=== PATIENT | female | born 2000 | race Caucasian/White ===

== ENCOUNTER 2023-03-27 10:24 | Emergency (ER) | payer BC, SELFPAY ==
--- NOTE | ~2023-03-27 | XR_ITS ---
EXAMINATION:XR_[id number], XR thoracic spine 3V DATE: 03/27/2023 11:20 INDICATION: Neck and back pain TECHNIQUE: 1. Standing AP, lateral, lateral swimmers and odontoid views of the cervical spine are provided. 2. Standing AP, lateral and lateral swimmer's views of the thoracic spine were obtained. COMPARISON: None FINDINGS: Cervical spine: Straightening of the normal cervical lordosis. Which could be positional or due to muscle spasm No sp ondylolisthesis or facet subluxation. Odontoid is intact. Normal atlantoaxial interval. Vertebral b faustino heights are normal. Disc spaces are normal. Prevertebral soft tissues are normal. Thoracic spine: 9 degree thoracic levocurvature. Sagittal alignment is normal. Vertebral body and disc heights are no rmal. Visualized portion of lungs are clear. Cardiomediastinal silhouette is normal. IMPRESSION: 1. Straightening of the normal cervical lordosis which could be positional or due to muscle spasm. 2. 9 degree thoracic levocurvature. Reviewed, dictated and finalized at location L. IMPRESSION: 1. Straightening of the normal cervical lordosis which could be positional or d ue to muscle spasm. 2. 9 degree thoracic levocurvature.
[2023-03-27 10:25] VITALS: BP 106/63; PULSE 66; RESP 17; TEMP 36.4; O2SAT 99
--- NOTE | 2023-03-27 10:39 | ED_ITS ---
HPI - Back Pain/Injury General Chief Complaint: Back Pain/Injury Stated Complaint: upper back pain Time Seen by Provider: 03/27/23 10:30 History of Present Illness HPI Narrative: 22-year-old female presents to the emergency room for mid back pain for 10 days. Patient denies any injury or trauma. States 10 years ago she fractured her T6 vertebra, is concerned that she might of reinjured it. Patient has not attempted any [id number] analgesics. States pain is worse when she takes in a deep breath or with certain movements. Denies any unilateral weakness or pain. Denies any numbness or tingling. Related Data Allergies Allergy/AdvReac Type Severity Reaction Status Date / Time No Known Allergies Allergy Verified 03/27/23 10:28 Review of Systems Review of Systems: CONSTITUTIONAL: Denies fever, chills, or sweats. EYES: Denies visual changes, redness, or discharge. ENT: Denies rhinorrhea, congestion, sore throat, or otalgia. CARDIOVASCULAR: Denies chest pain, palpitations, or edema. RESPIRATORY: Denies cough or dyspnea. GASTROINTESTINAL: Denies abdominal pain, nausea, vomiting, or diarrhea. GENITOURINARY: Denies dysuria or hematuria. SKIN: Denies rash or itching. MUSCULOSKELETAL: Reports mid back pain NEUROLOGIC: Denies headache, numbness, dizziness, or weakness. PSYCHIATRIC: Denies anxiety or depression. Exam Narrative: GENERAL: Well-appearing, well-nourished, no physical limitations, and in no acute distress. HEAD: Normocephalic, atraumatic. EYES: Conjunctivae normal, PERRLA and EOMI. CHEST: Clear to auscultation. No respiratory distress. No wheezes rales or rhonchi. HEART: Regular rate and rhythm. No murmur heard. Normal peripheral pulses. BACK: Midline cervical/thoracic tenderness, no step-offs or bony abnormality; FROM EXTREMITIES: Normal range of motion. No edema. No clubbing or cyanosis SKIN: Warm, dry, no rash. No noted wounds NEURO: No focal deficits. Alert and oriented x3. MAEW. CN's II-XI intact bilaterally, normal gait PSYCH: Cooperative. Normal mood and affect. Course Vital Signs Vital signs: Vital Signs Temperature 36.4 C 03/27/23 10:25 Pulse Rate 66 03/27/23 10:25 Respiratory Rate 17 03/27/23 10:25 Blood Pressure 106/63 03/27/23 10:25 Pulse Oximetry 99 03/27/23 10:25 Oxygen Delivery Room Air 03/27/23 10:25 Temperature 36.4 C 03/27/23 10:25 Pulse Rate 66 03/27/23 10:25 Respiratory Rate 17 03/27/23 10:25 Blood Pressure 106/63 03/27/23 10:25 Pulse Oximetry 99 03/27/23 10:25 Oxygen Delivery Room Air 03/27/23 10:25 Discharge Plan Discharge Clinical Impression: Neck pain, Muscle spasm Patient Disposition: Home, Self-Care Condition: Stable Instructions: Antibiotic Form, Acute Neck Pain (ED) Prescriptions: New methocarbamol 500 mg tablet 500 mg PO TID Qty: 15 0RF naproxen 500 mg tablet 500 mg PO BID Qty: 14 0RF Follow-up/Referrals: PHYSICIAN,LOGGING TRACTOR OPERATOR [facility] [Non-Staff] - Time of Disposition: 11:46
[2023-03-27 12:17] VITALS: BP 97/60; PULSE 61; RESP 14; O2SAT 100
== END 2023-03-27 12:16 | disposition home or self-care (01) ==
PROVIDERS: Emergency Provider Nurse Practitioner Family
DX: M54.2 Cervicalgia (principal); M62.830 Muscle spasm of back
CPT/HCPCS: 72040; 72072; 99283

== ENCOUNTER 2023-09-14 11:33 | Emergency (ER) | payer BC, SELFPAY ==
[2023-09-14 12:05] VITALS: BP 105/67; PULSE 89; RESP 16; TEMP 36.7; O2SAT 100
--- NOTE | 2023-09-14 13:23 | ED.GENADULT ---
HPI - General Adult General Chief complaint: Upper Respiratory Infection Stated complaint: Sore Throat;Fever;Uti symptoms Source: patient Mode of arrival: ambulatory Limitations: no limitations History of Present Illness HPI narrative: Patient presents for evaluation of sore throat and fever for last 3 days. She has some mild otalgia of denies any cough, shortness of breath, nausea, vomiting, diarrhea. Her also has similar symptoms. She has also experienced some urinary symptoms over the last two days. Symptoms include urinary frequency, urgency and incomplete emptying. Denies dysuria, hematuria, suprapubic/low back pain. She is currently , approximately 15 weeks gestation with confirmed IUP per U/S. No vaginal bleeding or abdominal/pelvic pain. Related Data Allergies Allergy/AdvReac Type Severity Reaction Status Date / Time No Known Allergies Allergy Verified 03/27/23 10:28 Review of Systems Review of Systems: CONSTITUTIONAL: Reports low grade fever. Denies chills or sweats. EYES: Denies visual changes, redness, or discharge. ENT:Reports sore throat and mild otalgia. Denies rhinorrhea or congestion CARDIOVASCULAR: Denies chest pain, palpitations, or edema. RESPIRATORY: Denies cough or dyspnea. GASTROINTESTINAL: Denies abdominal pain, nausea, vomiting, or diarrhea. GENITOURINARY: reports urinary frequency, incomplete emptying and urgency. Denies hematuria, dysuria, vaginal bleeding or discharge SKIN: Denies rash or itching. MUSCULOSKELETAL: Denies back pain, joint pain, or myalgia. NEUROLOGIC: Denies headache, numbness, dizziness, or weakness. PSYCHIATRIC: Denies anxiety or depression. [facility] Past Medical History Medical History No pertinent past medical history Surgical History Surgical History No pertinent past surgical history Family History Family History Mother Family history non-contributory Social History Social History Living arrangements: with family Gender identity (if verbalized by the patient): Female Sexual Orientation (if Verbalized by the Patient): Straight or Heterosexual Exam Narrative: GENERAL: Well-appearing, well-nourished, and in no acute distress. HEAD: Normocephalic, atraumatic. EYES: PERRLA and EOMI. ENT: Nares clear, no rhinorrhea or epistaxis. Mucous membranes moist. posterior pharyngeal erythema without exudate. Uvula is midline. Bilateral TMs pearly alejandro nonbulging NECK: Supple. No adenopathy or masses. No carotid bruits or JVD CHEST: Clear to auscultation. No respiratory distress. No wheezes rales or rhonchi HEART: Regular rate and rhythm. No murmur heard. Normal peripheral pulses. ABDOMEN: Soft, nontender, nondistended, normal active bowel sounds. EXTREMITIES: Normal range of motion. No edema. SKIN: Warm, dry, no rash. NEURO: No focal deficits. Alert and oriented x3. PSYCH: Normal mood and affect. Course Course Emergency Course: This is a 23-year-old female who presented for evaluation of sore throat and fever. Rapid strep was negative. Through shared decision making opted to proceed with antibiotic therapy due to current to . She does have leukocytes in her urine today. Cephalexin seems the best option for her due to statues and UTI/pharyngitis. She was informed she should follow up with her primary and OBGYN. She should go to the ER for worsening symptoms, vaginal bleeding or discharge. Level of Care: Express Care Visit Vital Signs Vital signs: Vital Signs Temperature 36.7 C 09/14/23 12:05 Pulse Rate 89 09/14/23 12:05 Respiratory Rate 16 09/14/23 12:05 Blood Pressure 105/67 09/14/23 12:05 Pulse Oximetry 100 09/14/23 12:05 Temperature 36.7 C
== END 2023-09-14 13:30 | disposition home or self-care (01) ==
PROVIDERS: Emergency Provider Nurse Practitioner; PCP Nurse Practitioner Family
DX: O23.42 Unspecified infection of urinary tract in pregnancy, second trimester (principal); N39.0 Urinary tract infection, site not specified; O26.892 Other specified pregnancy related conditions, second trimester; J02.9 Acute pharyngitis, unspecified; Z3A.15 15 weeks gestation of pregnancy
CPT/HCPCS: 81003; 87081; 87086; 87088; 87880; 99213; G0463